=== PATIENT | female | born 1995 | race Caucasian/White ===

== ENCOUNTER 2022-11-11 21:31 | Emergency (ER) | payer BC, SELFPAY ==
[2022-11-11 21:42] VITALS: BP 132/82; PULSE 87; RESP 18; TEMP 36.3; O2SAT 97
--- NOTE | 2022-11-11 22:04 | ED.GENADUL_ITS ---
Discharge Plan Disposition Patient Disposition: Home Discharge Details Clinical Impression: Bed bug bite Primary Care Provider: Emely,Local ED Provider: Luciano Warner Home Meds and New Rx's Prescriptions: New hydrocortisone 2.5 % cream 1 applic topical QID PRN (Reason: itching) Qty: 30 1RF Continued biotin 10 mg Tablet 10 mg PO DAILY duloxetine [Cymbalta] 60 mg Capsule,Delayed Release(Dr/Ec) 60 mg PO DAILY Discharge Instructions Instructions: Bed Bugs (ED) Additional Instructions: It is very important that you properly treat your clothing and luggage after leaving the hotel. Bedbugs can be very hard to kill so be very thorough with anything that was in the room during the potential infestation. You may take [id number] antihistamine such as Claritin, Zyrtec, or Benadryl as needed for itching. Return to the emergency department for any new or significant worsening of symptoms otherwise follow-up with primary care provider as needed. Referrals: Primary Care Provider [Outside] Discharge Data Discharge Date/Time-TO BE ENTERED AT DEPARTURE: 11/11/22 22:18 Medical Decision Making Patient presenting the emergency department chief complaint of exposure to bedbugs and bites. She noted over the last couple days she has seen bugs in her bed at the hotel she is staying at. Then all sudden she started breaking out in a rash on her back and her neck. Patient denies all other symptoms. Physical exam consistent with insect bites to the back with localized inflammation. No signs of anaphylactoid type reaction or systemic illness. Patient did show me a picture of the bug she is seeing and it does appear consistent with bedbugs. Patient instructed on use of antihistamines and prescribed topical steroid to use as needed. After discussion of diagnosis and plan of care patient has no further needs, questions, or concerns and states clear understanding to return to the emergency department for any worsening symptoms. This documentation was generated using [employer] system, please disregard any oddities of phrase or misspellings. HPI General Mode of arrival: ambulatory . Date/Time Provider Initiated Documentation: 11/11/22 21:52 . Limitations to Documentation: no limitations . Information obtained by: patient and RN notes reviewed . History of Present Illness 26 year old F presents to the emergency department with the chief compl aint of Insect bites, described as moderate, Patient started experiencing this day(s) (3) and it has been constant. No relieving factors improve symptom(s), Patient notes no other symptoms.. Patient did receive the following treatments prior to arrival, none Related Data Home Medications Medication Instructions Recorded Confirmed biotin 10 mg tablet 10 mg PO DAILY 11/11/22 11/11/22 duloxetine 60 mg capsule,delayed 60 mg PO DAILY 11/11/22 11/11/22 release (Cymbalta) hydrocortisone 2.5 % topical cream 1 applic topical QID PRN itching 11/11/22 #30 grams Previous Rx's Medication Instructions Recorded hydrocortisone 2.5 % topical cream 1 applic topical QID PRN itching 11/11/22 #30 grams Allergies Allergy/AdvReac Type Severity Reaction Status Date / Time Sulfa (Sulfonamide Allergy Severe Anaphylaxis Unverified 11/11/22 21:41 Antibiotics) Latex, Natural Rubber AdvReac Mild Skin Rash Unverified 11/11/22 21:41 General Stated Complaint: InsectBite JOSEPH: 5 Review of Systems ENT Ears, Nose, Mouth, and Throat: Denies lip swelling and Denies sore throat Cardiovascular Cardiovascular: Denies chest pain and Denies dyspnea Respiratory Respiratory: Denies cough, Denies dyspnea, Denies stridor and Denies wheezing Gastrointestinal Gastrointestinal: Reports system reviewed and no additional complaints, except as documented Integumentary/Breasts Skin/Breast: Reports as per HPI, Reports pruritus and Reports rash Allergic/Immunologic Allergic/Immunologic: Denies lip swelling and Denies wheezing PFSH All Active Problems Bed bug bite (Acute) Social History Smoking/Tobacco Use Status: Never Smoking risk assessment performed?: Yes Alcohol Intake: current Alcohol Intake frequency: a few times a month Drug use: Never Substance use type: does not use Do you feel safe at home: Yes Do you feel safe in your relationship?: Yes Exam Const General: cooperative, no acute distress and not ill appearing Orientation: alert, awake and oriented x3 HENMT Head: normal to inspection Ears: hearing grossly normal bilaterally Mouth: oral mucosae normal, lip normal, tongue normal and moist mucous membranes Throat: posterior oropharynx normal, tonsils normal and uvula midline Resp Effort & Inspection: normal respiratory effort, able to speak in complete sentences and no respiratory distress Cardio Rate: regular rate Rhythm: regular rhythm Heart Sounds: S1 normal and S2 normal Skin Rashes: rashes noted papules diffuse posterior truncal Neuro General: patient alert, patient awake, patient oriented x3, moves all extremities and no focal motor deficits Course Vital Signs Vital signs: Vital Signs Temperature 36.3 C L 11/11/22 21:42 Pulse 87 11/11/22 21:42 Respiratory Rate 18 11/11/22 21:42 Blood Pressure 132/82 11/11/22 21:42 Pulse Oximetry 97 11/11/22 21:42 Temperature 36.3 C L 11/11/22 21:42 Temperature Source Tympanic 11/11/22 21:42 Pulse 87 11/11/22 21:42 Respiratory Rate 18 11/11/22 21:42 Respiratory Effort Normal, Non-Labored 11/11/22 21:44 Blood Pressure 132/82 11/11/22 21:42 Blood Pressure Position Sitting 11/11/22 21:42 Pulse Oximetry 97 11/11/22 21:42 Oxygen Delivery Method Room Air 11/11/22 21:42 Oxygen Flow Rate 0 11/11/22 21:42 Pain Level 0 11/11/22 21:42 PAWSS Have you Been Recently Intoxicated or Drunk Within the Last 30 days?: No Have you Ever Experienced Previous Episodes of Alcohol Withdrawal?: No Have you ever Experienced Withdrawal Seizures?: No Have you ever Experienced Delirium Tremens(DT)s?: No Have you ever undergone Alcohol Rehabilitation Treatment (i.e, inpt ot outpatient treatment programs)?: No Have you ever Experienced Blackouts?: No Have you ever Combined Alcohol with other Downers within the last 90 days?: No Have you ever Combined Alcohol with any other Substance of Abuse during the last 90 days?: No Positive Blood Alcohol level on Presentation? [PCS.BAL]: No Evidence of Increased Autonomic Activity (i.e. HR>120, tremor, sweating, agitation, nausea)?: No Result: 0
== END 2022-11-11 22:18 | disposition home or self-care (01) ==
PROVIDERS: Emergency Provider Nurse Practitioner Family
DX: S20.469A Insect bite (nonvenomous) of unspecified back wall of thorax, initial encounter (principal); W57.XXXA Bitten or stung by nonvenomous insect and other nonvenomous arthropods, initial encounter
CPT/HCPCS: 99283; 99284